=== PATIENT | male | born 1935 | race Caucasian/White ===

== ENCOUNTER 2016-11-06 15:16 | Observation (INO) | payer OTHER, MEDICARE ==
[2016-11-06] MEDS ORDERED: Morphine INJ* 4 MG/ML 1 ML SYRINGE IV ONE (15:43)
[2016-11-06] MEDS ORDERED: NS 0.9% 1000 ML* 2,000 ML IV ONE (15:43)
[2016-11-06] MEDS ORDERED: Ondansetron INJ* 2 MG/ML VIAL IV ONE (15:43)
[2016-11-06 16:11] LABS: Hematocrit 38 % (42-52); Hemoglobin 12.9 g/dl (14.0-18.0); Mean Corpuscular HGB Conc 34 g/dl (31-36); Mean Corpuscular Hemoglobin 32 pg (27-31); Mean Corpuscular Volume 96 fL (80-94); Mean Platelet Volume 7 um3 (7.4-10.4); Red Blood Count 3.98 10^6/ul (4.0-5.4); Red Cell Distribution Width 14 % (10.5-15); White Blood Count 5.3 10^3/ul (3.5-10.8)
[2016-11-06 16:20] LABS: Albumin 3.8 g/dL (3.2-5.2); BUN/Creatinine Ratio 20.6 (8-20); C Reactive Protein 2.67 mg/L (< 5.00); Calcium 8.9 mg/dL (8.6-10.3); EGFR Non-African American 55.2 (>60); Globulin 2.7 g/dL (2-4); Total Bilirubin 0.4 mg/dL (0.2-1.0); Total Protein 6.5 g/dL (6.4-8.9)
[2016-11-06 16:36] LABS: Digoxin 1.3 ng/ml (0.8-2.0)
[2016-11-06] MEDS ORDERED: Iodixanol* (CONTRAST) 320 MG/ML 100 ML SDV IV ONE (17:45)
[2016-11-06 18:31] LABS: Urine Bacteria Absent (Absent); Urine Bilirubin Negative (Negative); Urine Glucose Negative (Negative); Urine Nitrite Negative (Negative)
--- NOTE | 2016-11-06 18:55 | RAD ---
CLINICAL HISTORY: Abdominal pain. The requisition includes "history of colon resection". COMPARISON: Most recent CT of the abdomen and pelvis is dated March 16, 2014 TECHNIQUE: Contrast enhanced CT examination of the abdomen and pelvis from the lung bases through the initial tuberosities. The patient received 79 mL intravenously prior to imaging.The patient received oral contrast as well prior to imaging. FINDINGS: VISUALIZED LUNG BASES: Lungs exhibit diffuse emphysematous changes. The heart is enlarged with coarse calcification at the coronary arteries and aortic ring. ABDOMEN AND PELVIS: The liver, spleen, pancreas and adrenal glands are grossly normal in appearance. The gallbladder is normal. The kidneys are normal in appearance without focal mass, calcification or signs of hydronephrosis. The oral contrast has progressed in what appears to be the midpoint of the small bowel. The abdominal cavity is greatly distorted as is the course of the large and small bowel making evaluation extremely complicated. There is stool in the rectum the sigmoid colon exhibits air-filled dilatation of the 6.8 cm (axial image 63). There are dilated loops of small bowel measuring up to at least 3.4 cm in diameter. The patient has either undergone a right hemicolectomy or the colon is malrotated. There is trace ascites in the left hemipelvis (image 77) but otherwise there is not appear to be any extraluminal drainable fluid collection or free peritoneal gas. The gas visualized appears to be contained within the lumen of the colon, small bowel and stomach. There is no gross retroperitoneal or mesenteric lymphadenopathy. The pelvic viscera is normal in appearance. There is coarse atherosclerotic calcification of the abdominal aorta extending into the iliofemoral arteries with ectatic curvature. Degenerative changes of the lower thoracic and lumbar spine include loss of intervertebral disc height, marginal osteophyte formation and vacuum disc phenomenon. There is been increased compression of the L3 vertebral body with worsening sclerotic change relative to the previous CT examination.There are no sinister bone lesions. IMPRESSION: 1. The small and large bowel exhibits alternating segments of dilatation, narrowing and normal diameter. The sigmoid colon exhibits a maximum gas-filled diameter of 6.8 cm while proximal loops of small bowel measure up to 3.4 cm. There is not appear to be a focal transition point characteristic of a single focal stricture. Evaluation is complicated by an unspecified surgical history. Potentially an intraperitoneal hernia is present but without knowing the surgical history determining which one is only conjecture. There is scattered ascites but no definite drainable fluid collection and no definite free peritoneal gas. Overall the appearance is similar to the March 16, 2014 CT examination. 2. Extensive chronic, degenerative and postoperative findings described in the body the report unlikely to be directly related to the patient's current presentation.
--- NOTE | 2016-11-06 19:04 | ED ---
I, Oh,Soohyun, scribed for Emanuel Soriano MD on 11/06/16 at 1545 . Abdominal Pain/Male - HPI Summary HPI Summary: Somewhat limited HPI due to Pt being poor historian. This 81 y/o male presents to ED for acute diffuse abd pain since 0900 AM this morning. Pain has been constant since time of onset, and does not radiate elsewhere. Negative n/v. Pt vaguely reports diarrhea. Eating does not make pain worse. PSHx includes colostomy s/p reversal, but he was unable to provide history as to why he had colostomy done. Negative cholecystectomy. PMHx includes chronic back pain, a-fib, and HLD. Pt works at [employer]. - History of Current Complaint Chief Complaint: EDAbdPain Stated Complaint: ABD PAIN Time Seen by Provider: 11/06/16 15:32 Hx Obtained From: Patient, Medical Records Onset/Duration: Still Present Timing: Constant, Lasting Hours Pain Intensity: 8 Pain Scale Used: 0-10 Numeric Location: Diffuse Radiates: No Character: Dull Aggravating Factor(s): Nothing Alleviating Factor(s): Nothing Associated Signs And Symptoms: Positive: Diarrhea. Negative: Urinary Symptoms, Nausea, Vomiting - Allergies/Home Medications Allergies/Adverse Reactions: Allergies Allergy/AdvReac Type Severity Reaction Status Date / Time No Known Allergies Allergy Verified 11/06/16 15:19 PMH/Surg Hx/FS Hx/Imm Hx Endocrine/Hematology History: Denies: Hx Anticoagulant Therapy, Hx Diabetes, Hx Thyroid Disease Cardiovascular History: Reports: Hx Auto Implanted Cardiovert Defib, Hx Congestive Heart Failure - His medications suggest this, but pt is not able to tell me his medical Dx., Hx Hypercholesterolemia, Hx Hypertension, Hx Pacemaker/ ICD, Other Cardiovascular Problems/Disorders - dilated cardiomyopathy, aortic insufficency Denies: Hx Deep Vein Thrombosis, Hx Myocardial Infarction Respiratory History: Reports: Hx Pneumonia Denies: Hx Asthma, Hx Chronic Obstructive Pulmonary Disease (COPD), Hx Lung Cancer, Hx Pulmonary Embolism GI History: Denies: Hx Gall Bladder Disease, Hx Gastrointestinal Bleed, Hx Ulcer, Hx Urosepsis History: Denies: Hx Dialysis, Hx Kidney Stones, Hx Renal Disease Musculoskeletal History: Reports: Hx Arthritis Sensory History: Reports: Hx Contacts or Glasses Denies: Hx Hearing Aid Opthamlomology History: Reports: Hx Contacts or Glasses Neurological History: Reports: Hx Seizures - 2013 Denies: Hx Dementia, Hx Migraine, Hx Transient Ischemic Attacks (TIA) Psychiatric History: Denies: Hx Anxiety, Hx Depression, Hx Panic Disorder, Hx Schizophrenia, Hx Bipolar Disorder - Surgical History Surgery Procedure, Year, and Place: PT UNSURE REASON FOR SURGERY - STATES PROSTATE/PACEMAKER/colon x2 Infectious Disease History: No Infectious Disease History: Denies: Traveled Outside the [place] in Last 30 Days - Family History Known Family History: Negative: Cardiac Disease, Hypertension - Social History Alcohol Use: None Hx Substance Use: No Substance Use Type: Reports: None Hx Tobacco Use: No Smoking Status (MU): Never Smoked Tobacco Review of Systems Negative: Fever Positive: Abdominal Pain, Diarrhea. Negative: Vomiting, Nausea Negative: dysuria All Other Systems Reviewed And Are Negative: Yes Physical Exam - Summary Physical Exam Summary: The patient is well-nourished in no acute distress and in no acute pain. The skin is warm and dry and skin color reflects adequate perfusion. Decreased skin turgor. Diaphoretic. HEENT: The head is normocephalic and atraumatic. The pupils are equal and reactive. The conjunctivae are clear and without drainage. Nares are patent and without drainage. Mouth reveals moist mucous membranes and the throat is without erythema and exudate. The external ears are intact. The ear canals are patent and without drainage. The tympanic membranes are intact. Neck is supple with full range of motion and non-tender. There are no carotid bruits. There is no neck vein distension. Respiratory: Chest is non-tender. Lungs are clear to auscultation and breath sounds are symmetrical and equal. Cardiovascular: Hear is regular rate and rhythm. There is no murmur or rub auscultated. There is no peripheral edema and pulses are symmetrical and equal. Abdomen: The abdomen is soft and tender at LLQ There are normal bowel sounds heard in all four quadrants and there is no organomegaly palpated. Musculoskeletal: There is no back pain noted. Extremities are non-tender with full range of motion. There is good capillary refill. There is no peripheral edema or calf tenderness elicited. Neurological: Patient is alert and oriented to person, place and time. The patient has symmetrical motor strength in all four extremities. Cranial nerves are grossly intact. Deep tendon reflexes are symmetrical and equal in all four extremities. Psychiatric: The patient has an appropriate affect and does not exhibit any anxiety or depression. Triage Information Reviewed: Yes Vital Signs On Initial Exam: Initial Vitals Temp Pulse Resp BP Pulse Ox 97.4 F 44 16 110/64 95 11/06/16 15:20 11/06/16 15:20 11/06/16 15:20 11/06/16 15:20 11/06/16 15:20 Vital Signs Reviewed: Yes Diagnostics - Vital Signs Vital Signs Temp Pulse Resp BP Pulse Ox 11/06/16 15:20 97.4 F 44 16 110/64 95 - Laboratory Lab Results: Lab Results 11/06/16 11/06/16 11/06/16 Range/Units 15:55 15:55 15:55 WBC 5.3 (3.5-10.8) 10^3/ul RBC 3.98 L (4.0-5.4) 10^6/ul Hgb 12.9 L (14.0-18.0) g/dl Hct 38 L (42-52) % MCV 96 H (80-94) fL MCH 32 H (27-31) pg MCHC 34 (31-36) g/dl RDW 14 (10.5-15) % Plt Count 202 (150-450) 10^3/ul MPV 7 L (7.4-10.4) um3 Neut % (Auto) 89.1 H (38-83) % Lymph % (Auto) 4.6 L (25-47) % Newton % (Auto) 5.1 (1-9) % Eos % (Auto) 0.3 (0-6) % Baso % (Auto) 0.9 (0-2) % Absolute Neuts (auto) 4.8 (1.5-7.7) 10^3/ul Absolute Lymphs (auto) 0.2 L (1.0-4.8) 10^3/ul Absolute Monos (auto) 0.3 (0-0.8) 10^3/ul Absolute Eos (auto) 0 (0-0.6) 10^3/ul Absolute Basos (auto) 0 (0-0.2) 10^3/ul Absolute Nucleated RBC 0 10^3/ul Nucleated RBC % 0 Sodium 135 (133-145) mmol/L Potassium 4.0 (3.5-5.0) mmol/L Chloride 100 L (101-111) mmol/L Carbon Dioxide 28 (22-32) mmol/L Anion Gap 7 (2-11) mmol/L BUN 26 H (6-24) mg/dL Creatinine 1.26 H (0.67-1.17) mg/dL Est GFR ( Amer) 71.0 (>60) Est GFR (Non-Af Amer) 55.2 (>60) BUN/Creatinine Ratio 20.6 H (8-20) Glucose 123 H (70-100) mg/dL Lactic Acid 1.0 (0.5-2.0) mmol/L Calcium 8.9 (8.6-10.3) mg/dL Total Bilirubin 0.40 (0.2-1.0) mg/dL AST 23 (13-39) U/L ALT 14 (7-52) U/L Alkaline Phosphatase 99 (34-104) U/L C-Reactive Protein 2.67 (< 5.00) mg/L Total Protein 6.5 (6.4-8.9) g/dL Albumin 3.8 (3.2-5.2) g/dL Globulin 2.7 (2-4) g/dL Albumin/Globulin Ratio 1.4 (1-3) Amylase 100 (29-103) U/L Lipase 176 H (11.0-82.0) U/L Urine Color Urine Appearance Urine pH (5-9) Ur Specific [place] (1.010-1.030) Urine Protein (Negative) Urine Ketones (Negative) Urine Blood (Negative) Urine Nitrate (Negative) Urine Bilirubin (Negative) Urine Urobilinogen (Negative) Ur Leukocyte Esterase (Negative) Urine WBC (Auto) (Absent) Urine RBC (Auto) (Absent) Urine Bacteria (Absent) Hyaline Casts (Absent) Urine Glucose (Negative) Digoxin 1.3 (0.8-2.0) ng/ml 11/06/16 Range/Units 18:15 WBC (3.5-10.8) 10^3/ul RBC (4.0-5.4) 10^6/ul Hgb (14.0-18.0) g/dl Hct (42-52) % MCV (80-94) fL MCH (27-31) pg MCHC (31-36) g/dl RDW (10.5-15) % Plt Count (150-450) 10^3/ul MPV (7.4-10.4) um3 Neut % (Auto) (38-83) % Lymph % (Auto) (25-47) % Newton % (Auto) (1-9) % Eos % (Auto) (0-6) % Baso % (Auto) (0-2) % Absolute Neuts (auto) (1.5-7.7) 10^3/ul Absolute Lymphs (auto) (1.0-4.8) 10^3/ul Absolute Monos (auto) (0-0.8) 10^3/ul Absolute Eos (auto) (0-0.6) 10^3/ul Absolute Basos (auto) (0-0.2) 10^3/ul Absolute Nucleated RBC 10^3/ul Nucleated RBC % Sodium (133-145) mmol/L Potassium (3.5-5.0) mmol/L Chloride (101-111) mmol/L Carbon Dioxide (22-32) mmol/L Anion Gap (2-11) mmol/L BUN (6-24) mg/dL Creatinine (0.67-1.17) mg/dL Est GFR ( Amer) (>60) Est GFR (Non-Af Amer) (>60) BUN/Creatinine Ratio (8-20) Glucose (70-100) mg/dL Lactic Acid (0.5-2.0) mmol/L Calcium (8.6-10.3) mg/dL Total Bilirubin (0.2-1.0) mg/dL AST (13-39) U/L ALT (7-52) U/L Alkaline Phosphatase (34-104) U/L C-Reactive Protein (< 5.00) mg/L Total Protein (6.4-8.9) g/dL Albumin (3.2-5.2) g/dL Globulin (2-4) g/dL Albumin/Globulin Ratio (1-3) Amylase (29-103) U/L Lipase (11.0-82.0) U/L Urine Color Yellow Urine Appearance Clear Urine pH 5.0 (5-9) Ur Specific [place] 1.012 (1.010-1.030) Urine Protein Negative (Negative) Urine Ketones Negative (Negative) Urine Blood 1+ H (Negative) Urine Nitrate Negative (Negative) Urine Bilirubin Negative (Negative) Urine Urobilinogen Negative (Negative) Ur Leukocyte Esterase Negative (Negative) Urine WBC (Auto) Absent (Absent) Urine RBC (Auto) Trace(0-2/hpf) (Absent) Urine Bacteria Absent (Absent) Hyaline Casts Present H (Absent) Urine Glucose Negative (Negative) Digoxin (0.8-2.0) ng/ml Result Diagrams: 11/06/16 15:55 11/06/16 15:55 Lab Statement: Any lab studies that have been ordered have been reviewed, and results considered in the medical decision making process. - CT Ab/P CT Interpretation: Positive (See Comments) - 1. The small and large bowel exhibits alternating segments of dilatation, narrowing and normal diameter. The sigmoid colon exhibits a maximum gas-filled diameter of 6.8 cm while proximal loops of small bowel measure up to 3.4 cm. There is not appear to be a focal transition point characteristic of a single focal stricture. Evaluation is complicated by an unspecified surgical history. Potentially an intraperitoneal hernia is present but without knowing the surgical history determining which one is only conjecture. There is scattered ascites but no definite drainable fluid collection and no definite free peritoneal gas. Overall the appearance is similar to the March 16, 2014 CT examination. 2. Extensive chronic, degenerative and postoperative findings described in the body the report unlikely to be directly related to the patient's current presentation. CT Interpretation Completed By: Radiologist Re-Evaluation - Re-Evaluation First Eval Re-Evaluation Time: 18:53 Comment: Pt is updated with blood work results. Pt is informed of pending status of CT Ab/P. Pt expresses that he is uncomfortable being discharged, and that pain still persists. Abdominal Pain Fem Course/Dx - Course Assessment/Plan: This 81 y/o male presents to ED with CC of diffuse abd pain since this morning. PSHx includes colostomy s/p reversal, but pt was unable to provide why colostomy was done. Upon examination pt is noted with LLQ tenderness. Bloodwork is noted with increased creatinine level of 1.26 and elevated lipase of 176. CT Ab/P indicates; The small and large bowel exhibits alternating segments of dilatation, narrowing and normal diameter. The sigmoid colon exhibits a maximum gas-filled diameter of 6.8 cm while proximal loops of small bowel measure up to 3.4 cm. There is not appear to be a focal transition point characteristic of a single focal stricture. Evaluation is complicated by an unspecified surgical history. Potentially an intraperitoneal hernia is present but without knowing the surgical history determining which one is only conjecture. There is scattered ascites but no definite drainable fluid collection and no definite free peritoneal gas. Overall the appearance is similar to the March 16, 2014 CT examination. 2. Extensive chronic, degenerative and postoperative findings described in the body the report unlikely to be directly related to the patient's current presentation. - Diagnoses Differential Diagnosis/HQI/PQRI: Bowel Obstruction, Diverticulitis, Pancreatitis , Other - peptic ulcer disease Provider Diagnoses: abdominal pain, Pancreatitis, acute Discharge - Discharge Plan Condition: Stable Disposition: OTHER Discharge Disposition Comment: Pending hospitalist consult and dispo pending. signed out at shift change. Referrals: Amelia Hodge MD [Primary Care Provider] - The documentation as recorded by the Joe gonzales Soohyun accurately reflects the service I personally performed and the decisions made by me, Emanuel Soriano MD.
[2016-11-06] MEDS ORDERED: Morphine INJ* 4 MG/ML 1 ML SYRINGE IV PRN (20:12)
[2016-11-06] MEDS ORDERED: Acetaminophen TAB* 325 MG PO PRN (20:12)
[2016-11-06] MEDS ORDERED: Ondansetron INJ* 2 MG/ML VIAL IV PRN (20:12)
[2016-11-06] MEDS ORDERED: NS 0.9% 1000 ML* 1,000 ML IV SCH (20:15)
[2016-11-06] MEDS: Heparin VIAL(*) 5000 UNITS/ML VIAL (FIVE THOUSAND) SUBCUT SCH (22:32)
[2016-11-07] MEDS: Heparin VIAL(*) 5000 UNITS/ML VIAL (FIVE THOUSAND) SUBCUT SCH ×2 (05:27→14:19)
[2016-11-07] MEDS ORDERED: Lisinopril TAB* 5 MG PO SCH (09:00)
[2016-11-07] MEDS ORDERED: Metoprolol Succinate XL TAB* 50 MG PO SCH (09:00)
[2016-11-07] MEDS ORDERED: Atorvastatin* 20 MG TAB PO SCH (09:00)
[2016-11-07] MEDS ORDERED: Digoxin TAB* 0.25 MG PO SCH (09:00)
[2016-11-07 09:25] VITALS: BP 105/60
--- NOTE | 2016-11-07 09:27 | HP ---
HISTORY AND PHYSICAL: DATE OF ADMISSION: 11/06/16. CHIEF COMPLAINT: Abdominal pain. HISTORY OF PRESENT ILLNESS: Patient is a 81-year-old gentleman who states last night about 9 a.m. he was going to out at [facility] when he started to have pain in the lower part of his abdomen on both sides. It was significant. This was 9/10 in severity and sharp. It was a constant pain. He had no nausea or vomiting. No change in his bowel movements. He states he had this before. It usually goes away but it lasted since he came to the ER. He denied fevers or chills. He stated he had recent bowel movement. He came to the ER, was evaluated with a CAT scan and labs, which were unremarkable. He received pain medications and the pain is since gone. He is very concerned about going home. However, he lives alone and concerned that it could recur. PAST MEDICAL HISTORY: He has a past medical history significant for dilated cardiomyopathy, hypertension, hyperlipidemia, atrial fibrillation, COPD, aortic insufficiency, left bundle branch block, right iliac aneurysm, respiratory failure secondary to pneumonia. PAST SURGICAL HISTORY: Colon surgery x2. CURRENT MEDICATIONS: 1. Lisinopril 5 mg daily. 2. Digoxin 0.25 mg daily. 3. Atorvastatin 20 mg daily. 4. Metoprolol succinate 50 mg daily. ALLERGIES: No known drug allergies. FAMILY HISTORY: Reviewed and noncontributory. SOCIAL HISTORY: No tobacco, alcohol or recreational drug use. He has no one who he can name as his healthcare proxy at this time. REVIEW OF SYSTEMS: A 14-point of review of system was completed with the patient. All pertinent positives and negative are in the history of present illness, otherwise is negative. PHYSICAL EXAMINATION GENERAL: A pleasant gentleman lying in bed in no acute distress. VITAL SIGNS: Temperature 97.9 degrees, heart rate 96 beats per minute, respiratory rate 16 breaths per minute, pulse oximetry 98% on room room, blood pressure 103/67. HEENT: Normocephalic, atraumatic. Pupils equal, round, and reactive to light. Moist mucous membranes. NECK: Supple. No JVD, bruits, palpable thyroid or lymphadenopathy. CHEST: Clear to auscultation and percussions bilaterally. CARDIOVASCULAR EXAM: S1, S2 appreciated. ABDOMEN: Positive bowel sounds in all 4 quadrants, soft, nontender, and nondistended. EXTREMITIES: No cyanosis, clubbing. +2 peripheral pulses bilaterally. NEURO: Alert and oriented x3. Moves all extremities. SKIN: No rashes or abnormalities. LABORATORY DATA/DIAGNOSTIC DATA: White count 5.3, hemoglobin 12.9, hematocrit 38, platelets 202. Sodium 135, potassium 4.0, chloride 100, CO2 28, BUN 26, creatinine 1.26, glucose 123, lipase 176. Urinalysis shows some hyaline casts. CAT scan of the abdomen and pelvis was interpreted by Radiology as small enlarged bowels with alternating segments of dilatation and narrowing and normal diameter of the sigmoid colon exhibits a maximum gas filled diameter of 6.8 cm with possible loops of small bowel measuring 2.4 cm. This does not appear to be a focal transition point characteristic of single focussed stricture. Evaluation complicated by abnormal surgical history, potentially intraperitoneal hernia present but without no surgical history determining which one is only conjecture. There was scattered ascites with no definitive drainage fluid connection and no definitive free peritoneal gas. Overall it appears similar to 03/16/14 CT. Extensive degenerative and postoperative changes described above likely to be related to patient's current presentation. ASSESSMENT AND PLAN: 1. Abdominal pain unclear etiology. He is already feeling better. We will observe patient overnight in the CDU unit. If still feeling well, can leave earliest tomorrow morning. 2. Hypertension. Blood pressure adequately controlled with [place] Regimen. 3. Atrial fibrillation. Not anticoagulated. Continue digoxin, metoprolol. 4. Hyperlipidemia. Stable. Continue atorvastatin. 5. DVT prophylaxis. Heparin subcu. 6. FEN: Regular diet. 7. Code: The patient is a full code. TIME SPENT: Over 75 minutes was spent on this H and P, more than 40 minutes was spent in [id number] contact with the patient, evaluation, physical exam, counseling, and coordination care. CC: Dr. Amelia Hodge.* [id number]/CPS #: [id number] MTDD
--- NOTE | 2016-11-07 10:40 | PN ---
Subjective Date of Service: 11/07/16 Interval History: Patient seen and examined at bedside. Pt states that he is feeling well and no longer has abdominal pain. Reports that he was able to tolerate a regular diet for breakfast. Denies fever, chills, shortness of breath, chest discomfort, N/V/ D. Family History: Unchanged from Admission Social History: Unchanged from Admission Past Medical History: Findings - Seizure disorder Objective Active Medications: Acetaminophen (Tylenol Tab*) 650 mg PO Q4H PRN Reason: pain/fever Atorvastatin Calcium (Lipitor*) 20 mg PO DAILY ZOHRA Digoxin (Lanoxin Tab*) 0.25 mg PO DAILY ZOHRA Heparin Sodium (Porcine) (Heparin Vial(*)) 5,000 units SUBCUT Q8HR ZOHRA Sodium Chloride (Ns 0.9% 1000 Ml*) 1,000 mls @ 100 mls/hr IV PER RATE ZOHRA Lisinopril (Prinivil Tab*) 5 mg PO DAILY ZOHRA Metoprolol Succinate (Toprol Xl Tab*) 50 mg PO DAILY ZOHRA Morphine Sulfate (Morphine Inj (Syringe)*) 4 mg IV Q4H PRN Reason: PAIN Ondansetron HCl (Zofran Inj*) 4 mg IV Q4H PRN Reason: NAUSEA Vital Signs 11/06/16 11/06/16 11/06/16 20:30 21:48 21:50 Temperature 97.9 F 97.9 F Pulse Rate 96 96 Respiratory 18 16 16 Rate Blood Pressure 99/70 103/67 103/67 (mmHg) O2 Sat by Pulse 98 98 Oximetry 11/07/16 11/07/16 11/07/16 07:23 09:08 09:27 Temperature 97.4 F Pulse Rate 51 67 67 Respiratory 16 Rate Blood Pressure 98/65 105/60 (mmHg) O2 Sat by Pulse 95 95 Oximetry Oxygen Devices in Use Now: None Appearance: NAD, sitting up in a chair Eyes: No Scleral Icterus, PERRLA Ears/Nose/Mouth/Throat: Mucous Membranes Moist Respiratory: Symmetrical Chest Expansion and Respiratory Effort, Clear to Auscultation Cardiovascular: NL Sounds; No Murmurs; No JVD, RRR Abdominal: NL Sounds; No Tenderness; No Distention Extremities: No Edema Skin: No Rash or Ulcers Neurological: Alert and Oriented x 3, NL Muscle Strength and Tone Lines/Tubes/Other Access: Clean, Dry and Intact Peripheral IV - site benign Nutrition: Taking PO's Result Diagrams: 11/06/16 15:55 11/07/16 12:31 Additional Lab and Data: Assess/Plan/Problems-Billing Assessment: Mr. Nino is a 81 yo male with PMH significant for dilated cardiomyopathy, HTN , HLD, afib, COPD, and aortic insufficiency who presented to the emergency room with complaints of abdominal pain. - Patient Problems (1) Abdominal pain Code(s): R10.9 - UNSPECIFIED ABDOMINAL PAIN SNOMED Code(s): 10697321 Comment: - Resolved, unclear etiology - Tolerating a regular diet (2) MYA (acute kidney injury) Code(s): N17.9 - ACUTE KIDNEY FAILURE, UNSPECIFIED SNOMED Code(s): 62210687 Comment: - Will recheck labs this morning (3) HTN (hypertension) Code(s): I10 - ESSENTIAL (PRIMARY) HYPERTENSION SNOMED Code(s): 83816879 Comment: - Hypotensive - Hold Lisinopril, resume at discharge (4) HLD (hyperlipidemia) Code(s): E78.5 - HYPERLIPIDEMIA, UNSPECIFIED SNOMED Code(s): 31593440 Comment: - Continue Atorvastatin (5) Afib Code(s): I48.91 - UNSPECIFIED ATRIAL FIBRILLATION SNOMED Code(s): 11920669 Comment: - Continue Digoxin, Amiodarone, and Pradaxa (6) Dilated cardiomyopathy Code(s): I42.0 - DILATED CARDIOMYOPATHY SNOMED Code(s): 243131766 Comment: - No evidence of acute exacerbation - Continue furosemide and lisinopril - Will stop spironolactone (7) Seizure disorder Code(s): G40.909 - EPILEPSY, UNSP, NOT INTRACTABLE, WITHOUT STATUS EPILEPTICUS SNOMED Code(s): 768947599 Comment: - Continue Phenytoin (8) DVT prophylaxis Code(s): BGN3569 - SNOMED Code(s): 149483073 (9) Full code status Code(s): Z78.9 - OTHER SPECIFIED HEALTH STATUS SNOMED Code(s): 667894445 Status and Disposition: OBV. Stable for discharge to home today.
[2016-11-07 13:07] LABS: BUN/Creatinine Ratio 17.7 (8-20); Calcium 8.4 mg/dL (8.6-10.3); EGFR African American 97.2 (>60); EGFR Non-African American 75.6 (>60); Potassium 4.2 mmol/L (3.5-5.0)
--- NOTE | 2016-11-08 07:39 | DS ---
DISCHARGE SUMMARY: DATE OF ADMISSION: 11/06/16 DATE OF DISCHARGE: 11/07/16 ATTENDING PHYSICIAN: Cecily Fried DO* (dictated by Urbano Mares NP) PRIMARY CARE PROVIDER: Dr. Amelia Hodge. PRIMARY DIAGNOSES: 1. Abdominal pain, unknown etiology. 2. Acute kidney injury. SECONDARY DIAGNOSES: 1. Hypertension. 2. Atrial fibrillation. 3. Hyperlipidemia. STUDIES WHILE IN THE HOSPITAL: Abdomen/pelvis CT from 11/06/16. Radiologist's impression: The small and large bowel exhibit alternating segments of dilation , narrowing and normal diameter. The sigmoid colon exhibits a maximum gas filled diameter of 6.8 cm, while proximal loops of the small bowel measure up to 3.4 cm. There does not appear to be a focal transition point characteristic of a single focal stricture. Evaluation is complicated by an unspecified surgical history. Potentially, an intraperitoneal hernia is present, but without knowing the surgical history, determining which one is only conjuncture. There is scattered ascites with no definite drainable fluid collection and no definite free peritoneal gas. Overall, the appearance is similar to the 03/16/14 CT examination. Extensive chronic degenerative and postoperative findings described in the body of the report, unlikely to be directly related to the patient's current presentation. DISCHARGE MEDICATIONS: Continued home medications: 1. Lisinopril 5 mg oral daily. 2. Atorvastatin 20 mg oral daily. 3. Alendronate sodium 70 mg oral weekly on Tuesdays. 4. Acetaminophen 1000 mg oral every 6 hours as needed for pain. 5. Dilantin 400 mg oral daily at bedtime. 6. Furosemide 20 mg oral daily. 7. Digoxin mcg oral daily. 8. Amiodarone 300 mg oral daily. 9. Aspirin 81 mg oral daily. 10. Pradaxa 150 mg oral twice daily. Discontinued home medications: 1. Spironolactone. HISTORY OF PRESENT ILLNESS/HOSPITAL COURSE: Mr. Nino is a 81-year-old male with a past medical history significant for dilated cardiomyopathy, hypertension , hyperlipidemia, atrial fibrillation, and COPD who presented to the emergency room with complaints of lower abdominal pain. The patient denied any associated symptoms such as nausea or vomiting or changes in his bowel movements. The patient reports this is similar to a previous episode and that the discomfort usually goes away, but due to the patient's discomfort lasting for longer than normal, he presented to the emergency room for further evaluation of his symptoms. While in the emergency room, the patient had a CT scan and labs that were unremarkable. He received pain medication and his pain resolved. The patient was concerned about going home and the hospitalists were asked to evaluate the patient for admission. While in the hospital, the patient's pain resolved. He was able to tolerate a regular diet. At this time, the cause of the patient's abdominal pain is unknown. The patient's vital signs remained stable, although slightly hypotensive with blood pressures in the 90s to 100s. It is also to note that the patient had an acute kidney injury on arrival with a BUN of 26 and a creatinine of 1.26. After receiving IV fluids overnight, the patient's acute kidney injury resolved. Mr. Nino is stable for discharge to home today. Vital signs are as follows: Temperature 97.4, heart rate 51, respiratory rate 16, O2 sat 95% on room air, and blood pressure 98/65. DISCHARGE PLAN: Mr. Nino will be discharged to home. ACTIVITY: As tolerated. DIET: Regular. As far as the patient's acute kidney injury, I suspect this is partially due to overdiuresis. 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 At this time, I recommend the patient to hold his spironolactone and continue on his furosemide. For now, the patient has been continued on his lisinopril. I recommend monitoring his blood pressures as this may need to be further decreased, if he continues to be hypotensive. As far as the patient's atrial fibrillation, he should be continued on his digoxin, amiodarone, and Pradaxa. For the patient's history of a seizure disorder, he should be continued on his home Dilantin. The patient has been instructed to return to the emergency room for shortness of breath or chest pain. The patient should be seen in followup by his primary care provider, Dr. Amelia Hodge, and he has an appointment on November 14 at 11:15 a.m. The patient has also been set up with a home care referral to assist with his medications to ensure that he is taking his medications appropriately. This is a summarized report of a complex medical history and hospital stay. For further details, please see the entire medical record. TIME SPENT: Time for this discharge was 50 minutes, 25 minutes were spent face- to- face with the patient, discussing discharge plans and instructions. CONDITION ON DISCHARGE: Stable. URBANO WOODSON NP CC: Dr. Amelia Hodge* [id number]/CPS #: [id number] MARISELA
== END 2016-11-07 15:10 | disposition home or self-care (01) ==
LOC: ED 15:16 → MED 20:12
PROVIDERS: ADMIT Internal Medicine; ATTEND Hospitalist
DX: R10.9 Unspecified abdominal pain (principal); N17.9 Acute kidney failure, unspecified; I48.91 Unspecified atrial fibrillation; I10 Essential (primary) hypertension; E78.5 Hyperlipidemia, unspecified; I42.0 Dilated cardiomyopathy; G40.909 Epilepsy, unspecified, not intractable, without status epilepticus; Z79.01 Long term (current) use of anticoagulants; Z79.82 Long term (current) use of aspirin; Z79.899 Other long term (current) drug therapy
CPT/HCPCS: 36415; 74177; 80048; 80053; 80162; 81003; 81015; 82150; 83605; 83690; 85025; 86140; 96372; 96374; 96375; 99284; A9270-GY; G0378; J1644; J2270; J2405; Q9967